=== PATIENT | female | born 1960 | race American Indian/Alaskan Native ===

== ENCOUNTER 2016-10-05 09:49 | Outpatient (CLI) | payer MEDICARE ==
[2016-10-05 10:13] LABS: Basophils % (Auto) 1.2 % (0.0-1.8); Eosinophils % (Auto) 1.7 % (0.0-4.3); Hematocrit 48.8 % (30.3-42.9); Hemoglobin 15.8 gm/dl (10.1-14.3); Mean Corpuscular HGB Conc 32 % (30-34); Mean Corpuscular Hemoglobin 29 pg (28-32); Mean Corpuscular Volume 89 fl (79-97); Platelet Count 256 K/mm3 (140-440); Red Blood Count 5.47 M/mm3 (3.65-5.03); Red Cell Distribution Width 14.5 % (13.2-15.2); White Blood Count 6.5 K/mm3 (4.5-11.0)
[2016-10-05 10:33] LABS: Alanine Aminotransferase 14 units/L (7-56); Albumin 3.7 g/dL (3.9-5); Albumin/Globulin Ratio 1.1 %; Alkaline Phosphatase 80 units/L (35-129); Anion Gap 19 mmol/L; BUN/Creatinine Ratio 14.54; Bilirubin,Total 0.3 mg/dL (0.1-1.2); Blood Urea Nitrogen 16 mg/dL (7-17); Carbon Dioxide 19 mmol/L (22-30); Chloride 107.6 mmol/L (98-107); Cholesterol 129 mg/dL (50-199); Glucose 107 mg/dL (65-100); HDL Cholesterol 33 mg/dL (40-59); LDL Cholesterol,Direct 66 mg/dL (50-130); Potassium 4.5 mmol/L (3.6-5.0); Sodium 141 mmol/L (137-145); Total Protein 7.1 g/dL (6.3-8.2); Triglycerides 150 mg/dL (2-149)
== END 2016-10-05 09:50 | disposition home or self-care (01) ==
LOC: LAB 09:49
PROVIDERS: ATTEND Psychiatry & Neurology Psychiatry
DX: F31.75 Bipolar disorder, in partial remission, most recent episode depressed (principal)
CPT/HCPCS: 36415; 80053; 80061; 83036; 84146; 84439; 84443; 85025

== ENCOUNTER 2016-12-12 13:44 | Emergency (ER) | payer MEDICARE ==
[2016-12-12 16:42] LABS: Basophils % (Auto) 1.3 % (0.0-1.8); Eosinophils % (Auto) 1.1 % (0.0-4.3); Hematocrit 51.2 % (30.3-42.9); Hemoglobin 16.6 gm/dl (10.1-14.3); Mean Corpuscular HGB Conc 33 % (30-34); Mean Corpuscular Hemoglobin 29 pg (28-32); Mean Corpuscular Volume 91 fl (79-97); Platelet Count 344 K/mm3 (140-440); Red Blood Count 5.65 M/mm3 (3.65-5.03); Red Cell Distribution Width 15.9 % (13.2-15.2); White Blood Count 8.3 K/mm3 (4.5-11.0)
[2016-12-12 16:58] LABS: Anion Gap 16 mmol/L; Blood Urea Nitrogen 14 mg/dL (7-17); Calcium 9.7 mg/dL (8.4-10.2); Carbon Dioxide 22 mmol/L (22-30); Chloride 104.2 mmol/L (98-107); Glucose 110 mg/dL (65-100); Potassium 4.6 mmol/L (3.6-5.0); Sodium 138 mmol/L (137-145)
[2016-12-12 17:01] LABS: Urine Drugs of Abuse Note Disclamer
[2016-12-12 17:21] LABS: Bilirubin,Urine NEG (Negative); Blood,Urine NEG (Negative); Ketones,Urine NEG (Negative); Leukocyte Esterase,Urine NEG (Negative); Mucus,Urine FEW /HPF; Nitrite,Urine NEG (Negative); Protein,Urine <15 mg/dL mg/dL (Negative); Urobilinogen,Urine < 2.0 mg/dL (<2.0); WBC,Urine < 1.0 /HPF (0.0-6.0)
[2016-12-12] MEDS ORDERED: TESSALON PERLES PO ONE (17:50)
[2016-12-12] MEDS ORDERED: VISTARIL PO ONE (17:50)
--- NOTE | 2016-12-12 17:55 | Emergency Department Report ---
ED Psych HPI - General Chief Complaint: Psych Stated Complaint: SUICIDAL THOUGHTS Time Seen by Provider: 12/12/16 17:43 Source: patient Mode of arrival: Ambulatory Limitations: No Limitations - History of Present Illness Initial Comments: 56-year-old female with no past medical history diabetes, hypertension, and pacemaker presents to the hospital compresses suicidal thoughts. Patient states she is not suicidal now but was suicidal when she first arrived hours ago. When asked what changed compared to arrival. Patient states she realized that is not the right way to be. She denies any suicide plan. She admits to suicidal thoughts in the past and inpatient psychiatric hospitalization but denies suicide attempts. She denies auditory or visual hallucinations. She complains of cough productive of green sputum 3 weeks but denies fever, chest pain, or shortness of breath. She does not currently have a psychiatrist and does not take psychiatric medication. Previous medical record reviewed. Patient has not been seen here before for psychiatric issues. Patient requested medication for her nerves. - Related Data Previous Rx's Medication Instructions Recorded Last Taken Type Albuterol Sulfate [Albuterol 0.63% 0.63 mg IH TID PRN #1 box 09/16/16 Unknown Rx NEBS] Desloratadine/Pseudoephedrine 1 each PO BID #30 tbmp.12hr 09/16/16 Unknown Rx [Clarinex-D 12 Hour Tablet] Fluticasone [Flonase] 1 spray NS QDAY #1 bottle 09/16/16 Unknown Rx Promethazine /Codeine 5 ml PO Q6H PRN #120 ml 09/16/16 Unknown Rx [Phenergan/Codeine 6.25-10 mg/5 ml] Allergies Allergy/AdvReac Type Severity Reaction Status Date / Time No Known Allergies Allergy Verified 09/16/16 05:16 ED Review of Systems ROS: Stated complaint: SUICIDAL THOUGHTS Other details as noted in HPI Comment: All other systems reviewed and negative Other: Constitutional: No fevers chills Eyes: No eye pain visual changes ENT: No ear pain or throat pain Neck: Denies pain Respiratory: Denieswheezing shortness of breath Cardiovascular: Denies chest pain, palpitations, syncope GI: Denies abdominal pain, nausea, vomiting, diarrhea : Denies dysuria Musculoskeletal: Denies back pain Skin: Denies rash, lesions, erythema Neurologic: Denies headache, numbness, weakness Psychiatric:as per hpi ED Past Medical Hx - Past Medical History Previous Medical History?: Yes Hx Hypertension: Yes Hx Diabetes: Yes - Surgical History Past Surgical History?: Yes Hx Pacemaker: Yes Additional Surgical History: KIDNEY SURGERY - Social History Smoking Status: Current Every Day Smoker Substance Use Type: Prescribed - Medications Home Medications: Home Medications Medication Instructions Recorded Confirmed Last Taken Type Albuterol Sulfate [Albuterol 0.63% 0.63 mg IH TID PRN #1 box 09/16/16 Unknown Rx NEBS] Desloratadine/Pseudoephedrine 1 each PO BID #30 tbmp.12hr 09/16/16 Unknown Rx [Clarinex-D 12 Hour Tablet] Fluticasone [Flonase] 1 spray NS QDAY #1 bottle 09/16/16 Unknown Rx Promethazine /Codeine 5 ml PO Q6H PRN #120 ml 09/16/16 Unknown Rx [Phenergan/Codeine 6.25-10 mg/5 ml] ED Physical Exam - General Limitations: No Limitations - Other Other exam information: General: No limitations, patient is alert in no acute distress Head exam: Atraumatic, normocephalic Eyes exam: Normal appearance, pupils equal reactive to light, extraocular movements intact ENT: Moist mucous membrane, normal oropharynx Neck exam: Normal inspection, full range of motion, no meningismus nontender Respiratory exam: Clear to auscultation bilateral, no wheezes, rales, crackles Cardiovascular: Normal rate and rhythm, normal heart sounds Abdomen: Soft, nondistended, and nontender, with normal bowel sounds, no rebound, or guarding Extremity: Full range of motion normal inspection no deformity Back: Normal Inspection, full range of motion, no tenderness Neurologic: Alert, oriented x2 not oriented to year, cranial nerves intact, no motor or sensory deficit Psychiatric: normal affect, normal mood Skin: Warm, dry, intact ED Course Vital Signs 12/12/16 12/12/16 12/12/16 15:37 16:52 18:45 Temperature 99.7 F H 98.6 F 97.8 F Pulse Rate 75 76 76 Respiratory 18 16 18 Rate Blood Pressure 121/86 Blood Pressure 109/80 125/76 [Right] O2 Sat by Pulse 96 95 100 Oximetry - Consultations Consultation #1: 12/12/16 19:07 consult and 1013 signed ED Medical Decision Making - Lab Data Result diagrams: 12/12/16 16:26 12/12/16 16:26 Lab Results 12/12/16 12/12/16 12/12/16 Range/Units 16:26 16:26 16:26 WBC 8.3 (4.5-11.0) K/mm3 RBC 5.65 H (3.65-5.03) M/mm3 Hgb 16.6 H (10.1-14.3) gm/dl Hct 51.2 H (30.3-42.9) % MCV 91 (79-97) fl MCH 29 (28-32) pg MCHC 33 (30-34) % RDW 15.9 H (13.2-15.2) % Plt Count 344 (140-440) K/mm3 Lymph % (Auto) 36.8 H (13.4-35.0) % [place] % (Auto) 4.8 (0.0-7.3) % Eos % (Auto) 1.1 (0.0-4.3) % Baso % (Auto) 1.3 (0.0-1.8) % Lymph # 3.1 (1.2-5.4) K/mm3 [place] # 0.4 (0.0-0.8) K/mm3 Eos # 0.1 (0.0-0.4) K/mm3 Baso # 0.1 (0.0-0.1) K/mm3 Seg Neutrophils % 56.0 (40.0-70.0) % Seg Neutrophils # 4.7 (1.8-7.7) K/mm3 Sodium 138 (137-145) mmol/L Potassium 4.6 (3.6-5.0) mmol/L Chloride 104.2 (98-107) mmol/L Carbon Dioxide 22 (22-30) mmol/L Anion Gap 16 mmol/L BUN 14 (7-17) mg/dL Creatinine 1.0 (0.7-1.2) mg/dL Estimated GFR > 60 ml/min BUN/Creatinine Ratio 14.00 % Glucose 110 H (65-100) mg/dL Calcium 9.7 (8.4-10.2) mg/dL Urine Color (Yellow) Urine Turbidity (Clear) Urine pH (5.0-7.0) Ur Specific [place] (1.003-1.030) Urine Protein (Negative) mg/dL Urine Glucose (UA) (Negative) mg/dL Urine Ketones (Negative) mg/dL Urine Blood (Negative) Urine Nitrite (Negative) Urine Bilirubin (Negative) Urine Urobilinogen (<2.0) mg/dL Ur Leukocyte Esterase (Negative) Urine WBC (Auto) (0.0-6.0) /HPF Urine RBC (Auto) (0.0-6.0) /HPF U Epithel Cells (Auto) (0-13.0) /HPF Urine Mucus /HPF Urine Opiates Screen Urine Methadone Screen Ur Barbiturates Screen Ur Phencyclidine Scrn Ur Amphetamines Screen U Benzodiazepines Scrn Urine Cocaine Screen U Marijuana (THC) Screen Drugs of Abuse Note Plasma/Serum Alcohol < 0.01 (0-0.07) gm% 12/12/16 12/12/16 Range/Units 16:27 16:27 WBC (4.5-11.0) K/mm3 RBC (3.65-5.03) M/mm3 Hgb (10.1-14.3) gm/dl Hct (30.3-42.9) % MCV (79-97) fl MCH (28-32) pg MCHC (30-34) % RDW (13.2-15.2) % Plt Count (140-440) K/mm3 Lymph % (Auto) (13.4-35.0) % [place] % (Auto) (0.0-7.3) % Eos % (Auto) (0.0-4.3) % Baso % (Auto) (0.0-1.8) % Lymph # (1.2-5.4) K/mm3 [place] # (0.0-0.8) K/mm3 Eos # (0.0-0.4) K/mm3 Baso # (0.0-0.1) K/mm3 Seg Neutrophils % (40.0-70.0) % Seg Neutrophils # (1.8-7.7) K/mm3 Sodium (137-145) mmol/L Potassium (3.6-5.0) mmol/L Chloride (98-107) mmol/L Carbon Dioxide (22-30) mmol/L Anion Gap mmol/L BUN (7-17) mg/dL Creatinine (0.7-1.2) mg/dL Estimated GFR ml/min BUN/Creatinine Ratio % Glucose (65-100) mg/dL Calcium (8.4-10.2) mg/dL Urine Color Yellow (Yellow) Urine Turbidity Slightly-cloudy (Clear) Urine pH 7.0 (5.0-7.0) Ur Specific [place] 1.013 (1.003-1.030) Urine Protein <15 mg/dl (Negative) mg/dL Urine Glucose (UA) Neg (Negative) mg/dL Urine Ketones Neg (Negative) mg/dL Urine Blood Neg (Negative) Urine Nitrite Neg (Negative) Urine Bilirubin Neg (Negative) Urine Urobilinogen < 2.0 (<2.0) mg/dL Ur Leukocyte Esterase Neg (Negative) Urine WBC (Auto) < 1.0 (0.0-6.0) /HPF Urine RBC (Auto) 3.0 (0.0-6.0) /HPF U Epithel Cells (Auto) 12.0 (0-13.0) /HPF Urine Mucus Few /HPF Urine Opiates Screen Presumptive negative Urine Methadone Screen Presumptive negative Ur Barbiturates Screen Presumptive negative Ur Phencyclidine Scrn Presumptive negative Ur Amphetamines Screen Presumptive negative U Benzodiazepines Scrn Presumptive negative Urine Cocaine Screen Presumptive negative U Marijuana (THC) Screen Presumptive negative Drugs of Abuse Note Disclamer Plasma/Serum Alcohol (0-0.07) gm% - Radiology Data Radiology results: report reviewed (cxr: naf) - Medical Decision Making 1030 and transfer form signed for suicidal ideation. Patient is medically cleared - Differential Diagnosis suicidal ideation, depression, anxiety Critical Care Time: No Critical care attestation.: If time is entered above; I have spent that time in minutes in the direct care of this critically ill patient, excluding procedure time. ED Disposition Clinical Impression: Suicidal ideation, Medical clearance for psychiatric admission Disposition: DC/TX PSY HOSP/PSY UNIT Is pt being admited?: No Condition: Stable Time of Disposition: 19:08 (Awaiting acceptance)
[2016-12-12 19:44] VITALS: BP 124/76
--- NOTE | 2016-12-13 08:18 | XRay Report ---
CHEST 2 VIEWS INDICATION: Cough for 3 weeks. COMPARISON: None similar at this institution. FINDINGS: PA and lateral chest radiographs demonstrate limited inspiration with mild exaggerated cardiomediastinal silhouette and crowded lung markings. No focal consolidation, pleural effusions or CHF. Right-sided pacemaker lead appears looped in upper aspect of the right atrium with an electrode projecting over the mid thoracic spine. Please correlate. Multilevel thoracic spondylosis. CONCLUSION: No definite acute chest process, as described. Cardiology pacemaker correlation may be obtained, as appropriate. Direct comparison with similar prior imaging would also be helpful, if available. Thank you for the opportunity to participate in this patient's care.
== END 2016-12-12 22:50 ==
LOC: ED 13:44 → EEVIPCON 13:44 → ED 22:50
DX: R45.851 Suicidal ideations (principal); I10 Essential (primary) hypertension; E11.9 Type 2 diabetes mellitus without complications; F17.200 Nicotine dependence, unspecified, uncomplicated; Z95.0 Presence of cardiac pacemaker
CPT/HCPCS: 36415; 71020; 80048; 80307; 81001; 85025; 99285; G0480; 80320; Q0177

== ENCOUNTER 2016-12-29 20:03 | Emergency (ER) | payer MEDICARE ==
[2016-12-29 21:50] LABS: Eosinophils % (Auto) 1.4 % (0.0-4.3); Hematocrit 48.2 % (30.3-42.9); Hemoglobin 15.5 gm/dl (10.1-14.3); Mean Corpuscular HGB Conc 32 % (30-34); Mean Corpuscular Hemoglobin 30 pg (28-32); Mean Corpuscular Volume 92 fl (79-97); Red Blood Count 5.22 M/mm3 (3.65-5.03); Red Cell Distribution Width 15.8 % (13.2-15.2); White Blood Count 6.9 K/mm3 (4.5-11.0)
[2016-12-29 21:51] LABS: Urine Drugs of Abuse Note Disclamer
[2016-12-29 21:58] LABS: Platelet Count 225 K/mm3 (140-440)
[2016-12-29 22:12] LABS: Bilirubin,Urine NEG (Negative); Blood,Urine NEG (Negative); Ketones,Urine NEG (Negative); Leukocyte Esterase,Urine NEG (Negative); Mucus,Urine FEW /HPF; Nitrite,Urine NEG (Negative); Protein,Urine <15 mg/dL mg/dL (Negative); Urobilinogen,Urine < 2.0 mg/dL (<2.0)
[2016-12-29 22:12] LABS: Alanine Aminotransferase 17 units/L (7-56); Albumin 3.6 g/dL (3.9-5); Albumin/Globulin Ratio 0.9 %; Alkaline Phosphatase 100 units/L (35-129); Anion Gap 17 mmol/L; Bilirubin,Total 0.2 mg/dL (0.1-1.2); Blood Urea Nitrogen 16 mg/dL (7-17); Calcium 9.7 mg/dL (8.4-10.2); Carbon Dioxide 22 mmol/L (22-30); Chloride 105.2 mmol/L (98-107); Glucose 109 mg/dL (65-100); Sodium 139 mmol/L (137-145); Total Protein 7.4 g/dL (6.3-8.2)
--- NOTE | 2016-12-29 22:35 | Cat Scan Report ---
FINAL REPORT PROCEDURE: CT HEAD/BRAIN WO CON TECHNIQUE: Computerized tomography of the head was performed without contrast material. HISTORY: ams COMPARISON: No prior studies are available for comparison. FINDINGS: Skull and scalp: Normal. Paranasal sinuses: Normal. Ventricles and subarachnoid spaces: Normal. Cerebrum: No evidence of hemorrhage, acute infarction or mass . Cerebellum and brainstem: No evidence of hemorrhage, acute infarction or mass. Vasculature: Normal. Comments: None. IMPRESSION: Normal Examination
[2016-12-29 22:39] VITALS: BP 129/82
--- NOTE | 2016-12-29 23:20 | Emergency Department Report ---
- General Chief complaint: Altered Mental Status Stated complaint: ALTERED MENTAL STATUS Time Seen by Provider: 12/29/16 21:47 Source: patient Mode of arrival: Ambulatory Limitations: No Limitations - History of Present Illness MD Complaint: generalized weakness, lack of energy -: Gradual Location: generalized Severity: mild Severity scale (0 -10): 2 Consistency: intermittent, now resolved Improves with: none Worsens with: none Associated Symptoms: denies: chest pain, confusion, dark stools, diaphoresis, dysuria, easy bruising, fever/chills, headaches, loss of appetite, nausea/ vomiting, myalgias, rash, shortness of breath, syncope - Related Data Previous Rx's Medication Instructions Recorded Last Taken Type Albuterol Sulfate [Albuterol 0.63% 0.63 mg IH TID PRN #1 box 09/16/16 Unknown Rx NEBS] Desloratadine/Pseudoephedrine 1 each PO BID #30 tbmp.12hr 09/16/16 Unknown Rx [Clarinex-D 12 Hour Tablet] Fluticasone [Flonase] 1 spray NS QDAY #1 bottle 09/16/16 Unknown Rx Promethazine /Codeine 5 ml PO Q6H PRN #120 ml 09/16/16 Unknown Rx [Phenergan/Codeine 6.25-10 mg/5 ml] Allergies Allergy/AdvReac Type Severity Reaction Status Date / Time No Known Allergies Allergy Verified 09/16/16 05:16 ED Review of Systems ROS: Stated complaint: ALTERED MENTAL STATUS Other details as noted in HPI Constitutional: denies: chills, fever Eyes: denies: eye pain, eye discharge, vision change ENT: denies: ear pain, throat pain Respiratory: denies: cough, shortness of breath, wheezing Cardiovascular: denies: chest pain, palpitations Endocrine: no symptoms reported Gastrointestinal: denies: abdominal pain, nausea, diarrhea Genitourinary: denies: urgency, dysuria, discharge Musculoskeletal: denies: back pain, joint swelling, arthralgia Skin: denies: rash, lesions Neurological: denies: headache, weakness, paresthesias Psychiatric: denies: anxiety, depression Hematological/Lymphatic: denies: easy bleeding, easy bruising ED Past Medical Hx - Past Medical History Previous Medical History?: Yes Hx Hypertension: Yes Hx Diabetes: Yes - Surgical History Past Surgical History?: Yes Hx Pacemaker: Yes Additional Surgical History: KIDNEY SURGERY - Social History Smoking Status: Current Every Day Smoker Substance Use Type: None - Medications Home Medications: Home Medications Medication Instructions Recorded Confirmed Last Taken Type Albuterol Sulfate [Albuterol 0.63% 0.63 mg IH TID PRN #1 box 09/16/16 Unknown Rx NEBS] Desloratadine/Pseudoephedrine 1 each PO BID #30 tbmp.12hr 09/16/16 Unknown Rx [Clarinex-D 12 Hour Tablet] Fluticasone [Flonase] 1 spray NS QDAY #1 bottle 09/16/16 Unknown Rx Promethazine /Codeine 5 ml PO Q6H PRN #120 ml 09/16/16 Unknown Rx [Phenergan/Codeine 6.25-10 mg/5 ml] ED Physical Exam - General Limitations: No Limitations General appearance: alert, in no apparent distress - Head Head exam: Present: atraumatic, normocephalic - Eye Eye exam: Present: normal appearance - ENT ENT exam: Present: mucous membranes moist - Neck Neck exam: Present: normal inspection - Respiratory Respiratory exam: Present: normal lung sounds bilaterally. Absent: respiratory distress - Cardiovascular Cardiovascular Exam: Present: regular rate, normal rhythm. Absent: systolic murmur, diastolic murmur, rubs, gallop - GI/Abdominal GI/Abdominal exam: Present: soft, normal bowel sounds - Extremities Exam Extremities exam: Present: normal inspection - Back Exam Back exam: Present: normal inspection - Neurological Exam Neurological exam: Present: alert, oriented X3 - Psychiatric Psychiatric exam: Present: normal affect, normal mood - Skin Skin exam: Present: warm, dry, intact, normal color. Absent: rash ED Course Vital Signs 12/29/16 12/29/16 12/29/16 20:09 21:22 22:39 Temperature 98.6 F Pulse Rate 86 74 Respiratory 20 16 Rate Blood Pressure 154/109 143/105 129/82 [Right] O2 Sat by Pulse 99 95 Oximetry ED Medical Decision Making - Lab Data Result diagrams: 12/29/16 21:25 12/29/16 21:25 - EKG Data -: EKG Interpreted by Me EKG shows normal: sinus rhythm Rate: normal - EKG Data When compared to previous EKG there are: no significant change Interpretation: no acute changes - Medical Decision Making Patient doing well, back to her baseline, head ct and labs negative , offered admission but she wants to go home, nishant at bedside and VS normal and stable , will dc and follow up as outpatient , she has appointment with PMD next week. Critical care attestation.: If time is entered above; I have spent that time in minutes in the direct care of this critically ill patient, excluding procedure time. ED Disposition Clinical Impression: Weakness Disposition: DISCHARGED TO HOME OR SELFCARE Is pt being admited?: No Does the pt Need Aspirin: No Condition: Good Instructions: Weakness (ED) Referrals: PRIMARY CARE, [Primary Care Provider] - 3-5 Days Time of Disposition: 23:22
== END 2016-12-29 23:42 | disposition home or self-care (01) ==
LOC: ED 20:03
DX: R53.1 Weakness (principal); E11.9 Type 2 diabetes mellitus without complications; F17.200 Nicotine dependence, unspecified, uncomplicated
CPT/HCPCS: 36415; 70450; 80053; 80307; 81001; 81025; 82140; 82962; 83735; 84443; 85025; 93005; 93010; 99284; G0480; 80320

== ENCOUNTER 2017-09-17 16:36 | Inpatient (IN) | payer MEDICARE ==
--- NOTE | 2017-09-17 17:19 | Emergency Department Report ---
HPI - General Chief Complaint: Psych Time Seen by Provider: 09/17/17 17:05 - HPI HPI: Room 8 The patient is a 57-year-old female presenting with a chief complaint of suicidal ideation/overdose. The patient states some time this morning she took an unknown amount of each of her home medications. The patient admits to taking at least metformin and Topamax (unknown amounts) but states she can't remember the other medications she has taken. EMS transported the patient her home medications which include metformin, Topamax, lisinopril, Singulair, Plavix and carvedilol. Patient denies taking Tylenol or aspirin Location: Mental state Duration: [See above] Quality: Suicidal Severity: Severe Modifying factors: [see above] Context: [see above] Mode of transportation: [not driving] ED Past Medical Hx - Past Medical History Hx Hypertension: Yes Hx Diabetes: Yes - Surgical History Hx Pacemaker: Yes Additional Surgical History: KIDNEY SURGERY - Family History Family history: no significant - Social History Smoking Status: Current Every Day Smoker (1/3 pack per day) Substance Use Type: None (denies illicit drug use) - Medications Home Medications: Home Medications Medication Instructions Recorded Confirmed Last Taken Type Albuterol Sulfate [Albuterol 0.63% 0.63 mg IH TID PRN #1 box 09/16/16 Unknown Rx NEBS] Desloratadine/Pseudoephedrine 1 each PO BID #30 tbmp.12hr 09/16/16 Unknown Rx [Clarinex-D 12 Hour Tablet] Fluticasone [Flonase] 1 spray NS QDAY #1 bottle 09/16/16 Unknown Rx Promethazine /Codeine 5 ml PO Q6H PRN #120 ml 09/16/16 Unknown Rx [Phenergan/Codeine 6.25-10 mg/5 ml] ED Review of Systems ROS: Stated complaint: OVERDOSE/SUICIDAL Other details as noted in HPI Psychiatric: suicidal thoughts Physical Exam - Physical Exam Vital Signs: Vital Signs 09/17/17 09/17/17 09/17/17 16:48 16:50 16:55 Temperature Pulse Rate 84 Respiratory 18 18 Rate Blood Pressure 158/118 [Left] O2 Sat by Pulse 92 95 95 Oximetry 09/17/17 17:07 Temperature 97.8 F Pulse Rate 80 Respiratory 18 Rate Blood Pressure 152/92 [Left] O2 Sat by Pulse 97 Oximetry Physical Exam: GENERAL: The patient is well-developed well-nourished female sitting on stretcher not appearing to be in acute distress. [] HEENT: Normocephalic. Atraumatic. Extraocular motions are intact. Patient has moist mucous membranes. NECK: Supple. Trachea midline CHEST/LUNGS: Clear to auscultation. There is no respiratory distress noted. HEART/CARDIOVASCULAR: Regular. There is no tachycardia. There is no gallop rub or murmur. ABDOMEN: Abdomen is soft, nontender. Patient has normal bowel sounds. There is no abdominal distention. SKIN: There is no rash. There is no edema. There is no diaphoresis. NEURO: The patient is awake, alert, and oriented. The patient is cooperative. The patient has normal speech MUSCULOSKELETAL: There is no evidence of acute injury. ED Course Vital Signs 09/17/17 09/17/17 09/17/17 16:48 16:50 16:55 Temperature Pulse Rate 84 Respiratory 18 18 Rate Blood Pressure 158/118 [Left] O2 Sat by Pulse 92 95 95 Oximetry 09/17/17 17:07 Temperature 97.8 F Pulse Rate 80 Respiratory 18 Rate Blood Pressure 152/92 [Left] O2 Sat by Pulse 97 Oximetry - Consultations Consultation #1: 09/17/17 17:29 Poison control called 09/17/17 18:37 Case discussed with poison control. They recommend repeating lactic acid and venous pH in 6-8 hours and to administer IV fluids/hydration if there are no contraindications ED Medical Decision Making - Lab Data Result diagrams: 09/17/17 17:37 09/17/17 17:37 Laboratory Tests 09/17/17 09/17/17 09/17/17 17:02 17:02 17:31 WBC RBC Hgb Hct MCV MCH MCHC RDW Plt Count Lymph % (Auto) [place] % (Auto) Eos % (Auto) Baso % (Auto) Lymph # [place] # Eos # Baso # Seg Neutrophils % Seg Neutrophils # VBG pH Sodium Potassium Chloride Carbon Dioxide Anion Gap BUN Creatinine Estimated GFR BUN/Creatinine Ratio Glucose POC Glucose 95 Lactic Acid Calcium Total Bilirubin AST ALT Alkaline Phosphatase Total Protein Albumin Albumin/Globulin Ratio Urine Color Yellow Urine Turbidity Clear Urine pH 7.0 Ur Specific [place] 1.006 Urine Protein <15 mg/dl Urine Glucose (UA) Neg Urine Ketones Neg Urine Blood Neg Urine Nitrite Neg Urine Bilirubin Neg Urine Urobilinogen < 2.0 Ur Leukocyte Esterase Neg Urine WBC (Auto) 2.0 Urine RBC (Auto) 2.0 U Epithel Cells (Auto) 12.0 Urine Bacteria (Auto) 1+ Salicylates Urine Opiates Screen Presumptive negative Urine Methadone Screen Presumptive negative Acetaminophen Ur Barbiturates Screen Presumptive negative Ur Phencyclidine Scrn Presumptive negative Ur Amphetamines Screen Presumptive negative U Benzodiazepines Scrn Presumptive negative Urine Cocaine Screen Presumptive negative U Marijuana (THC) Screen Presumptive negative Drugs of Abuse Note Disclamer Plasma/Serum Alcohol 09/17/17 09/17/17 09/17/17 17:37 17:37 17:37 WBC 6.7 RBC 5.58 H Hgb 17.3 H Hct 52.6 H MCV 94 MCH 31 MCHC 33 RDW 14.8 Plt Count 280 Lymph % (Auto) 44.2 H [place] % (Auto) 6.3 Eos % (Auto) 1.5 Baso % (Auto) 0.7 Lymph # 3.0 [place] # 0.4 Eos # 0.1 Baso # 0.0 Seg Neutrophils % 49.4 Seg Neutrophils # 3.2 VBG pH Sodium 138 Potassium 4.8 Chloride 105.5 Carbon Dioxide 15 L Anion Gap 22 BUN 12 Creatinine 1.0 Estimated GFR > 60 BUN/Creatinine Ratio 12 Glucose 103 H POC Glucose Lactic Acid Calcium 9.8 Total Bilirubin 0.40 AST 17 ALT 16 Alkaline Phosphatase 70 Total Protein 7.3 Albumin 3.9 Albumin/Globulin Ratio 1.1 Urine Color Urine Turbidity Urine pH Ur Specific [place] Urine Protein Urine Glucose (UA) Urine Ketones Urine Blood Urine Nitrite Urine Bilirubin Urine Urobilinogen Ur Leukocyte Esterase Urine WBC (Auto) Urine RBC (Auto) U Epithel Cells (Auto) Urine Bacteria (Auto) Salicylates Urine Opiates Screen Urine Methadone Screen Acetaminophen Ur Barbiturates Screen Ur Phencyclidine Scrn Ur Amphetamines Screen U Benzodiazepines Scrn Urine Cocaine Screen U Marijuana (THC) Screen Drugs of Abuse Note Plasma/Serum Alcohol < 0.01 09/17/17 09/17/17 09/17/17 17:37 17:37 17:41 WBC RBC Hgb Hct MCV MCH MCHC RDW Plt Count Lymph % (Auto) [place] % (Auto) Eos % (Auto) Baso % (Auto) Lymph # [place] # Eos # Baso # Seg Neutrophils % Seg Neutrophils # VBG pH Sodium Potassium Chloride Carbon Dioxide Anion Gap BUN Creatinine Estimated GFR BUN/Creatinine Ratio Glucose POC Glucose Lactic Acid 1.90 Calcium Total Bilirubin AST ALT Alkaline Phosphatase Total Protein Albumin Albumin/Globulin Ratio Urine Color Urine Turbidity Urine pH Ur Specific [place] Urine Protein Urine Glucose (UA) Urine Ketones Urine Blood Urine Nitrite Urine Bilirubin Urine Urobilinogen Ur Leukocyte Esterase Urine WBC (Auto) Urine RBC (Auto) U Epithel Cells (Auto) Urine Bacteria (Auto) Salicylates < 0.3 L Urine Opiates Screen Urine Methadone Screen Acetaminophen < 15.0 Ur Barbiturates Screen Ur Phencyclidine Scrn Ur Amphetamines Screen U Benzodiazepines Scrn Urine Cocaine Screen U Marijuana (THC) Screen Drugs of Abuse Note Plasma/Serum Alcohol 09/17/17 09/17/17 17:41 18:12 WBC RBC Hgb Hct MCV MCH MCHC RDW Plt Count Lymph % (Auto) [place] % (Auto) Eos % (Auto) Baso % (Auto) Lymph # [place] # Eos # Baso # Seg Neutrophils % Seg Neutrophils # VBG pH 7.368 Sodium Potassium Chloride Carbon Dioxide Anion Gap BUN Creatinine Estimated GFR BUN/Creatinine Ratio Glucose POC Glucose 92 Lactic Acid Calcium Total Bilirubin AST ALT Alkaline Phosphatase Total Protein Albumin Albumin/Globulin Ratio Urine Color Urine Turbidity Urine pH Ur Specific [place] Urine Protein Urine Glucose (UA) Urine Ketones Urine Blood Urine Nitrite Urine Bilirubin Urine Urobilinogen Ur Leukocyte Esterase Urine WBC (Auto) Urine RBC (Auto) U Epithel Cells (Auto) Urine Bacteria (Auto) Salicylates Urine Opiates Screen Urine Methadone Screen Acetaminophen Ur Barbiturates Screen Ur Phencyclidine Scrn Ur Amphetamines Screen U Benzodiazepines Scrn Urine Cocaine Screen U Marijuana (THC) Screen Drugs of Abuse Note Plasma/Serum Alcohol - EKG Data -: EKG Interpreted by Me EKG shows normal: sinus rhythm Rate: normal - EKG Data When compared to previous EKG there are: previous EKG unavailable 09/17/17 17:45 QRS 98 - Differential Diagnosis suicidal ideation, medication overdose Critical care attestation.: If time is entered above; I have spent that time in minutes in the direct care of this critically ill patient, excluding procedure time. ED Disposition Clinical Impression: Suicidal ideation, Intentional drug overdose, Blood CO2 decreased Disposition: DC-09 OP ADMIT IP TO THIS HOSP Is pt being admited?: Yes Does the pt Need Aspirin: No Condition: Serious Time of Disposition: 19:09 (hospitalist paged (Dr Gomes))
[2017-09-17 17:25] LABS: Bacteria,Urine 1+ /HPF (Negative); Bilirubin,Urine NEG (Negative); Blood,Urine NEG (Negative); Color,Urine Yellow (Yellow); Nitrite,Urine NEG (Negative); Protein,Urine <15 mg/dL mg/dL (Negative); Urobilinogen,Urine < 2.0 mg/dL (<2.0)
[2017-09-17 17:36] LABS: Amphetamine Screen,Urine PRESUMPTIVE NEGATIVE; Benzodiazepines Screen,Urine PRESUMPTIVE NEGATIVE; Cannabinoid Screen,Urine PRESUMPTIVE NEGATIVE; Cocaine Screen,Urine PRESUMPTIVE NEGATIVE; Methadone Screen,Urine PRESUMPTIVE NEGATIVE; Opiate Screen,Urine PRESUMPTIVE NEGATIVE
[2017-09-17 17:50] LABS: Eosinophils % (Auto) 1.5 % (0.0-4.3); Monocytes % (Auto) 6.3 % (0.0-7.3)
[2017-09-17 17:56] LABS: Eosinophils # (Auto) 0.1 K/mm3 (0.0-0.4); Monocytes # (Auto) 0.4 K/mm3 (0.0-0.8)
[2017-09-17 17:59] LABS: Hematocrit 52.6 % (30.3-42.9); Hemoglobin 17.3 gm/dl (10.1-14.3); Mean Corpuscular HGB Conc 33 % (30-34); Mean Corpuscular Hemoglobin 31 pg (28-32); Mean Corpuscular Volume 94 fl (79-97); Mean Platelet Volume 9.4 fl (6-12); Platelet Count 280 K/mm3 (140-440); Red Blood Count 5.58 M/mm3 (3.65-5.03); Red Cell Distribution Width 14.8 % (13.2-15.2)
[2017-09-17 18:00] LABS: Basophils % (Auto) 0.7 % (0.0-1.8); Lymphocytes % (Auto) 44.2 % (13.4-35.0)
[2017-09-17 18:10] LABS: Alanine Aminotransferase 16 units/L (7-56); Albumin 3.9 g/dL (3.9-5); BUN/Creatinine Ratio 12; Blood Urea Nitrogen 12 mg/dL (7-17); Calcium 9.8 mg/dL (8.4-10.2); Hemolysis Index 41
[2017-09-17] MEDS ORDERED: NON-FORMULARY (Albuterol Sulfate [Albuterol 0.63% Nebs] 0.63 MG) IH PRN (19:51)
--- NOTE | 2017-09-17 19:51 | History and Physical Report ---
History of Present Illness Date of examination: 09/17/17 Date of admission: 09/17/17 Chief complaint: CC Intentional overdose on multiple meds including Metformin and Topamax. History of present illness: MIMI The patient is a 57-year-old female presenting with a chief complaint of suicidal ideation/overdose. The patient states some time this morning she took an unknown amount of each of her home medications. The patient admits to taking some metformin and Topamax (unknown amounts) but states she can't remember the other medications she has taken. EMS transported the patient her home medications which include metformin, Topamax, lisinopril, Singulair, Plavix and carvedilol. Patient denies taking Tylenol or aspirin. Past Medical History Hx Hypertension: Yes Hx Diabetes: Yes Surgical History Hx Pacemaker: Yes Additional Surgical History: KIDNEY SURGERY - Family History Family history: no significant - Social History Smoking Status: Current Every Day Smoker (1/3 pack per day) Substance Use Type: None (denies illicit drug use) - Medications Home Medications: Home Medications Medication Instructions Recorded Confirmed Last Taken Type Albuterol Sulfate [Albuterol 0.63% 0.63 mg IH TID PRN #1 box 09/16/16 Unknown Rx NEBS] Desloratadine/Pseudoephedrine 1 each PO BID #30 tbmp.12hr 09/16/16 Unknown Rx [Clarinex-D 12 Hour Tablet] Fluticasone [Flonase] 1 spray NS QDAY #1 bottle 09/16/16 Unknown Rx Promethazine /Codeine 5 ml PO Q6H PRN #120 ml 09/16/16 Unknown Rx [Phenergan/Codeine 6.25-10 mg/5 ml] Review of Systems ROS: Stated complaint: OVERDOSE/SUICIDAL Other details as noted in HPI Psychiatric: suicidal thoughts Medications and Allergies Allergies Allergy/AdvReac Type Severity Reaction Status Date / Time No Known Allergies Allergy Verified 09/16/16 05:16 Home Medications Medication Instructions Recorded Confirmed Last Taken Type Albuterol Sulfate [Albuterol 0.63% 0.63 mg IH TID PRN #1 box 09/16/16 Unknown Rx NEBS] Desloratadine/Pseudoephedrine 1 each PO BID #30 tbmp.12hr 09/16/16 Unknown Rx [Clarinex-D 12 Hour Tablet] Fluticasone [Flonase] 1 spray NS QDAY #1 bottle 09/16/16 Unknown Rx Promethazine /Codeine 5 ml PO Q6H PRN #120 ml 09/16/16 Unknown Rx [Phenergan/Codeine 6.25-10 mg/5 ml] Exam - Constitutional Vitals: Temp Pulse Resp BP Pulse Ox 97.8 F 80 18 152/92 97 09/17/17 17:07 09/17/17 17:07 09/17/17 17:07 09/17/17 17:07 09/17/17 17:07 General appearance: Present: no acute distress, well-nourished - EENT Eyes: Present: PERRL ENT: hearing intact, clear oral mucosa - Neck Neck: Present: supple, normal ROM - Respiratory Respiratory effort: normal Respiratory: bilateral: CTA - Cardiovascular Heart rate: 70 Rhythm: regular Heart Sounds: Present: S1 & S2. Absent: rub, click - Extremities Extremities: no ischemia, pulses intact, pulses symmetrical, No edema Peripheral Pulses: within normal limits - Abdominal General gastrointestinal: Present: soft, non-tender, non-distended, normal bowel sounds Female genitourinary: Present: normal - Rectal Rectal Exam: deferred - Integumentary Integumentary: Present: clear, warm, dry - Musculoskeletal Musculoskeletal: gait normal, strength equal bilaterally - Psychiatric Psychiatric: appropriate mood/affect, intact judgment & insight, depressed - Neurologic Neurologic: CNII-XII intact, moves all extremities - Allied Health Allied health notes reviewed: nursing, case management Results - Labs CBC & Chem 7: 09/17/17 17:37 09/17/17 17:37 Labs: Laboratory Last Values WBC 6.7 K/mm3 (4.5-11.0) 09/17/17 17:37 RBC 5.58 M/mm3 (3.65-5.03) H 09/17/17 17:37 Hgb 17.3 gm/dl (10.1-14.3) H 09/17/17 17:37 Hct 52.6 % (30.3-42.9) H 09/17/17 17:37 MCV 94 fl (79-97) 09/17/17 17:37 MCH 31 pg (28-32) 09/17/17 17:37 MCHC 33 % (30-34) 09/17/17 17:37 RDW 14.8 % (13.2-15.2) 09/17/17 17:37 Plt Count 280 K/mm3 (140-440) 09/17/17 17:37 Lymph % (Auto) 44.2 % (13.4-35.0) H 09/17/17 17:37 [place] % (Auto) 6.3 % (0.0-7.3) 09/17/17 17:37 Eos % (Auto) 1.5 % (0.0-4.3) 09/17/17 17:37 Baso % (Auto) 0.7 % (0.0-1.8) 09/17/17 17:37 Lymph # 3.0 K/mm3 (1.2-5.4) 09/17/17 17:37 [place] # 0.4 K/mm3 (0.0-0.8) 09/17/17 17:37 Eos # 0.1 K/mm3 (0.0-0.4) 09/17/17 17:37 Baso # 0.0 K/mm3 (0.0-0.1) 09/17/17 17:37 Seg Neutrophils % 49.4 % (40.0-70.0) 09/17/17 17:37 Seg Neutrophils # 3.2 K/mm3 (1.8-7.7) 09/17/17 17:37 VBG pH 7.368 (7.320-7.420) 09/17/17 17:41 Sodium 138 mmol/L (137-145) 09/17/17 17:37 Potassium 4.8 mmol/L (3.6-5.0) 09/17/17 17:37 Chloride 105.5 mmol/L (98-107) 09/17/17 17:37 Carbon Dioxide 15 mmol/L (22-30) L 09/17/17 17:37 Anion Gap 22 mmol/L 09/17/17 17:37 BUN 12 mg/dL (7-17) 09/17/17 17:37 Creatinine 1.0 mg/dL (0.7-1.2) 09/17/17 17:37 Estimated GFR > 60 ml/min 09/17/17 17:37 BUN/Creatinine Ratio 12 % 09/17/17 17:37 Glucose 103 mg/dL (65-100) H 09/17/17 17:37 POC Glucose 92 (70-105) 09/17/17 18:12 Lactic Acid 1.90 mmol/L (0.7-2.0) 09/17/17 17:41 Calcium 9.8 mg/dL (8.4-10.2) 09/17/17 17:37 Total Bilirubin 0.40 mg/dL (0.1-1.2) 09/17/17 17:37 AST 17 units/L (5-40) 09/17/17 17:37 ALT 16 units/L (7-56) 09/17/17 17:37 Alkaline Phosphatase 70 units/L (35-129) 09/17/17 17:37 Total Protein 7.3 g/dL (6.3-8.2) 09/17/17 17:37 Albumin 3.9 g/dL (3.9-5) 09/17/17 17:37 Albumin/Globulin Ratio 1.1 % 09/17/17 17:37 Urine Color Yellow (Yellow) 09/17/17 17:02 Urine Turbidity Clear (Clear) 09/17/17 17:02 Urine pH 7.0 (5.0-7.0) 09/17/17 17:02 Ur Specific [place] 1.006 (1.003-1.030) 09/17/17 17:02 Urine Protein <15 mg/dl mg/dL (Negative) 09/17/17 17:02 Urine Glucose (UA) Neg mg/dL (Negative) 09/17/17 17:02 Urine Ketones Neg mg/dL (Negative) 09/17/17 17:02 Urine Blood Neg (Negative) 09/17/17 17:02 Urine Nitrite Neg (Negative) 09/17/17 17:02 Urine Bilirubin Neg (Negative) 09/17/17 17:02 Urine Urobilinogen < 2.0 mg/dL (<2.0) 09/17/17 17:02 Ur Leukocyte Esterase Neg (Negative) 09/17/17 17:02 Urine WBC (Auto) 2.0 /HPF (0.0-6.0) 09/17/17 17:02 Urine RBC (Auto) 2.0 /HPF (0.0-6.0) 09/17/17 17:02 U Epithel Cells (Auto) 12.0 /HPF (0-13.0) 09/17/17 17:02 Urine Bacteria (Auto) 1+ /HPF (Negative) 09/17/17 17:02 Salicylates < 0.3 mg/dL (2.8-20.0) L 09/17/17 17:37 Urine Opiates Screen Presumptive negative 09/17/17 17:02 Urine Methadone Screen Presumptive negative 09/17/17 17:02 Acetaminophen < 15.0 ug/mL (10.0-30.0) 09/17/17 17:37 Ur Barbiturates Screen Presumptive negative 09/17/17 17:02 Ur Phencyclidine Scrn Presumptive negative 09/17/17 17:02 Ur Amphetamines Screen Presumptive negative 09/17/17 17:02 U Benzodiazepines Scrn Presumptive negative 09/17/17 17:02 Urine Cocaine Screen Presumptive negative 09/17/17 17:02 U Marijuana (THC) Screen Presumptive negative 09/17/17 17:02 Drugs of Abuse Note Disclamer 09/17/17 17:02 Plasma/Serum Alcohol < 0.01 gm% (0-0.07) 09/17/17 17:37 - Imaging and Cardiology EKG: report reviewed Assessment and Plan Advance Directives: Yes (Full code) VTE prophylaxis?: Chemical Plan of care discussed with patient/family: Yes - Patient Problems (1) Intentional drug overdose Current Visit: Yes Status: Acute Qualifiers: Encounter type: initial encounter Qualified Code(s): T50.902A - Poisoning by unspecified drugs, medicaments and biological substances, intentional self- harm, initial encounter Plan to address problem: Unknown amount of meds taken including Metformin and Topamax.Prevent hypoglycemia.IV D5W for now.Monitor closely for Hypotension. (2) Suicidal ideation Current Visit: Yes Status: Acute Plan to address problem: Mental Health consult (3) T2DM (type 2 diabetes mellitus) Current Visit: Yes Status: Chronic Qualifiers: Diabetes mellitus complication status: without complication Diabetes mellitus penitentiary insulin use: without terminal operations manager use Qualified Code(s): E11.9 - Type 2 diabetes mellitus without complications Plan to address problem: Presumed Diabetes Check A1c Low dose coverage for now. (4) DVT prophylaxis Current Visit: Yes Status: Acute Plan to address problem: On Lovenox
[2017-09-17] MEDS ORDERED: MILK OF MAGNESIA PO PRN (19:56)
[2017-09-17] MEDS ORDERED: MORPHINE IV PRN ×2 (19:56)
[2017-09-17] MEDS ORDERED: ZOFRAN IV PRN (19:56)
[2017-09-17] MEDS ORDERED: TYLENOL PO PRN (19:56)
[2017-09-17] MEDS ORDERED: DULCOLAX PR PRN (19:56)
[2017-09-17] MEDS ORDERED: PROVENTIL IH PRN (20:11)
[2017-09-17] MEDS ORDERED: NOVOLOG SUB-Q ONE (20:36)
[2017-09-17] MEDS: D5NS 1,000 ML IV SCH (22:35)
[2017-09-18 07:59] LABS: Basophils # (Auto) 0.1 K/mm3 (0.0-0.1); Basophils % (Auto) 0.8 % (0.0-1.8); Eosinophils # (Auto) 0.1 K/mm3 (0.0-0.4); Eosinophils % (Auto) 1.2 % (0.0-4.3); Hematocrit 48.7 % (30.3-42.9); Lymphocytes # (Auto) 3.4 K/mm3 (1.2-5.4); Lymphocytes % (Auto) 46.1 % (13.4-35.0); Mean Corpuscular HGB Conc 33 % (30-34); Mean Corpuscular Hemoglobin 31 pg (28-32); Mean Corpuscular Volume 95 fl (79-97); Monocytes # (Auto) 0.5 K/mm3 (0.0-0.8); Monocytes % (Auto) 6.9 % (0.0-7.3); Platelet Count 223 K/mm3 (140-440); Red Blood Count 5.12 M/mm3 (3.65-5.03); Red Cell Distribution Width 14.3 % (13.2-15.2)
[2017-09-18 08:05] LABS: Albumin 3.5 g/dL (3.9-5); Calcium 8.8 mg/dL (8.4-10.2)
--- NOTE | 2017-09-18 10:02 | Consultation ---
History of Present Illness - Reason for Consult Consult date: 09/18/17 Reason for consult: Mental Health Evaluation Requesting physician: JILL CASILLAS - Chief Complaint Chief complaint: "I took the pills" - History of Present Psychiatric Illness The patient is a 57-year-old female presenting with a chief complaint of suicidal ideation/overdose. Today patient is calm, but withdrawn during the assessment. She stated taking multiple metformin and topamax to kill herself. She stated that no one loves her. Also, she stated that her current medical issues is a major cause of her to feel the way she does. She denies any previous suicidal attempts in the past. She was evasive when she was asked about any life stressors that's going on in her life. The patient continue to state, "I had no reason to live yesterday." She would not conform or deny SI's, but denies HI's and AVH's. She denies sleep disturbance, but admitted to a poor appetite. She denies recreational drug use and a alcohol consumption. Medications and Allergies Allergies Allergy/AdvReac Type Severity Reaction Status Date / Time No Known Allergies Allergy Verified 09/16/16 05:16 Home Medications Medication Instructions Recorded Confirmed Last Taken Type Albuterol Sulfate [Albuterol 0.63% 0.63 mg IH TID PRN #1 box 09/16/16 Unknown Rx NEBS] Desloratadine/Pseudoephedrine 1 each PO BID #30 tbmp.12hr 09/16/16 Unknown Rx [Clarinex-D 12 Hour Tablet] Fluticasone [Flonase] 1 spray NS QDAY #1 bottle 09/16/16 Unknown Rx Promethazine /Codeine 5 ml PO Q6H PRN #120 ml 09/16/16 Unknown Rx [Phenergan/Codeine 6.25-10 mg/5 ml] Active Meds: Active Medications Acetaminophen (Tylenol) 650 mg PO Q4H PRN PRN Reason: Pain MILD(1-3)/Fever >100.5/TRUONG Albuterol (Proventil) 2.5 mg IH Q4HRT PRN PRN Reason: Shortness Of Breath Bisacodyl (Dulcolax) 10 mg CO QDAY PRN PRN Reason: Constipation unrelieved by MOM Fluticasone Propionate (Flonase) 50 mcg NS QDAY MOE Dextrose/Sodium Chloride (D5ns) 1,000 mls @ 125 mls/hr IV DIRECT MOE Last Admin: 09/17/17 22:35 Dose: 125 mls/hr Magnesium Hydroxide (Milk Of Magnesia) 30 ml PO Q4H PRN PRN Reason: Constipation Morphine Sulfate (Morphine) 2 mg IV Q4H PRN PRN Reason: Pain, Moderate (4-6) Morphine Sulfate (Morphine) 4 mg IV Q4H PRN PRN Reason: Pain , Severe (7-10) Ondansetron HCl (Zofran) 4 mg IV Q8H PRN PRN Reason: N/V unrelieved by Reglan Past psychiatric history - Past Medical History Past Medical History: diabetes, hypertension Past Surgical History: Other (Peace Maker, Kidney Surgery) - past Psychiatric treatment and history psychiatric treatment history: Denies a psy hx and a fam psy hx. - Social History Social history: lives with family Mental Status Exam - Vital signs Last Vital Signs Temp 98.1 F 09/18/17 08:06 Pulse 76 09/18/17 08:06 Resp 20 09/18/17 08:06 BP 120/86 09/18/17 08:06 Pulse Ox 95 09/18/17 08:06 - Exam Narrative exam: MSE: Appearance: calm Behavior: good eye contact Speech: regular rate and tone Mood: "okay" withdrawn Affect: congruent to mood Thought Process: circumstantial Thought Content: denies HI's and AVH's Motor Activity: lying in bed Cognition: A/O x3 Insight: variable Judgment: variable Results Result Diagrams: 09/18/17 07:28 09/19/17 06:46 Abnormal lab results 09/17/17 09/17/17 09/17/17 Range/Units 17:37 17:37 17:37 RBC 5.58 H (3.65-5.03) M/mm3 Hgb 17.3 H (10.1-14.3) gm/dl Hct 52.6 H (30.3-42.9) % Lymph % (Auto) 44.2 H (13.4-35.0) % Chloride (98-107) mmol/L Carbon Dioxide 15 L (22-30) mmol/L Creatinine (0.7-1.2) mg/dL Glucose 103 H (65-100) mg/dL Albumin (3.9-5) g/dL Salicylates < 0.3 L (2.8-20.0) mg/dL 09/18/17 09/18/17 Range/Units 07:28 07:28 RBC 5.12 H (3.65-5.03) M/mm3 Hgb 16.0 H (10.1-14.3) gm/dl Hct 48.7 H (30.3-42.9) % Lymph % (Auto) 46.1 H (13.4-35.0) % Chloride 108.3 H (98-107) mmol/L Carbon Dioxide 19 L (22-30) mmol/L Creatinine 1.4 H (0.7-1.2) mg/dL Glucose 126 H (65-100) mg/dL Albumin 3.5 L (3.9-5) g/dL Salicylates (2.8-20.0) mg/dL All other labs normal. Assessment and Plan Assessment and plan: Impression: MDD severe type. Today patient is calm, but withdrawn during the assessment. Patient has passive SI's. DDx: R/O Bipolar DO Recommendation/Plan: Continue 1013 with placement to inpatient psy services once medically stable. Start Remeron 15 mg PO HS for depression. Remeron may stimulate the patient's appetite. Discussed possible suicidality/medication induced bryanna with patient reference Remeron.
[2017-09-18] MEDS: FLONASE NS SCH (12:33)
[2017-09-18] MEDS: D5NS 1,000 ML IV SCH (16:15)
--- NOTE | 2017-09-18 17:01 | Progress Note ---
Assessment and Plan Assessment and plan: The patient is a 57-year-old female presenting after intentional drug overdose. Suicide attempt/intentional drug overdose Case discussed with psychiatry, patient remains depressed and withdrawn, she has been started on Remeron, planned for transfer to inpatient psych facility Acute kidney injury/vasomotor nephropathy Continue IV fluids if not improved by tomorrow, will get renal ultrasound and consult nephrology T2DM (type 2 diabetes mellitus) Glucose was actually low, continue dextrose containing IV fluid, check A1c DVT prophylaxis On Lovenox History Interval history: Review of systems Constitutional: No fevers, no malaise, no joint pains CVS: No chest pain, no orthopnea, no dyspnea on exertion, no pedal edema GI: No abdominal pain, no diarrhea, no vomiting, no constipation Respiratory: No shortness of breath, no wheezing, no coughing Hospitalist Physical - Physical exam Narrative exam: General.: Appears well, no distress, nontoxic HEENT: Moist mucous membranes, extraocular muscles intact, no lymphadenopathy Neck: supple Cardiac: S1-S2 heard Lungs: clear to auscultation bilaterally Abdomen: soft , nontender, nondistended, bowel sounds positive Extremities: no edema clubbing or cyanosis Skin: no rash or lesions Neurologic: no gross focal deficits Psych: Withdrawn, appears depressed - Constitutional Vitals: Temp Pulse Resp BP Pulse Ox 98.0 F 74 20 120/84 96 09/18/17 11:59 09/18/17 11:59 09/18/17 11:59 09/18/17 11:59 09/18/17 11:59 General appearance: Present: no acute distress, well-nourished Results - Labs CBC & Chem 7: 09/18/17 07:28 09/18/17 07:28 Labs: Laboratory Last Values WBC 7.3 K/mm3 (4.5-11.0) 09/18/17 07:28 RBC 5.12 M/mm3 (3.65-5.03) H 09/18/17 07:28 Hgb 16.0 gm/dl (10.1-14.3) H 09/18/17 07:28 Hct 48.7 % (30.3-42.9) H 09/18/17 07:28 MCV 95 fl (79-97) 09/18/17 07:28 MCH 31 pg (28-32) 09/18/17 07:28 MCHC 33 % (30-34) 09/18/17 07:28 RDW 14.3 % (13.2-15.2) 09/18/17 07:28 Plt Count 223 K/mm3 (140-440) 09/18/17 07:28 Lymph % (Auto) 46.1 % (13.4-35.0) H 09/18/17 07:28 [place] % (Auto) 6.9 % (0.0-7.3) 09/18/17 07:28 Eos % (Auto) 1.2 % (0.0-4.3) 09/18/17 07:28 Baso % (Auto) 0.8 % (0.0-1.8) 09/18/17 07: Lymph # 3.4 K/mm3 (1.2-5.4) 09/18/17 07:28 [place] # 0.5 K/mm3 (0.0-0.8) 09/18/17 07: Eos # 0.1 K/mm3 (0.0-0.4) 09/18/17 07:28 Baso # 0.1 K/mm3 (0.0-0.1) 09/18/17 07:28 Seg Neutrophils % 45.0 % (40.0-70.0) 09/18/17 07: Seg Neutrophils # 3.3 K/mm3 (1.8-7.7) 09/18/17 07:28 VBG pH 7.368 (7.320-7.420) 09/17/17 17:41 Sodium 143 mmol/L (137-145) 09/18/17 07:28 Potassium 4.2 mmol/L (3.6-5.0) 09/18/17 07:28 Chloride 108.3 mmol/L (98-107) H 09/18/17 07:28 Carbon Dioxide 19 mmol/L (22-30) L 09/18/17 07:28 Anion Gap 20 mmol/L 09/18/17 07:28 BUN 14 mg/dL (7-17) 09/18/17 07:28 Creatinine 1.4 mg/dL (0.7-1.2) H 09/18/17 07:28 Estimated GFR 47 ml/min 09/18/17 07:28 BUN/Creatinine Ratio 10 % 09/18/17 07:28 Glucose 126 mg/dL (65-100) H 09/18/17 07:28 POC Glucose 122 (70-105) H 09/18/17 12:04 Lactic Acid 1.90 mmol/L (0.7-2.0) 09/17/17 17:41 Calcium 8.8 mg/dL (8.4-10.2) 09/18/17 07:28 Total Bilirubin 0.30 mg/dL (0.1-1.2) 09/18/17 07:28 AST 13 units/L (5-40) 09/18/17 07:28 ALT 13 units/L (7-56) 09/18/17 07:28 Alkaline Phosphatase 58 units/L (35-129) 09/18/17 07:28 Total Protein 6.9 g/dL (6.3-8.2) 09/18/17 07:28 Albumin 3.5 g/dL (3.9-5) L 09/18/17 07:28 Albumin/Globulin Ratio 1.0 % 09/18/17 07:28 Urine Color Yellow (Yellow) 09/17/17 17:02 Urine Turbidity Clear (Clear) 09/17/17 17:02 Urine pH 7.0 (5.0-7.0) 09/17/17 17:02 Ur Specific [place] 1.006 (1.003-1.030) 09/17/17 17:02 Urine Protein <15 mg/dl mg/dL (Negative) 09/17/17 17:02 Urine Glucose (UA) Neg mg/dL (Negative) 09/17/17 17:02 Urine Ketones Neg mg/dL (Negative) 09/17/17 17:02 Urine Blood Neg (Negative) 09/17/17 17:02 Urine Nitrite Neg (Negative) 09/17/17 17:02 Urine Bilirubin Neg (Negative) 09/17/17 17:02 Urine Urobilinogen < 2.0 mg/dL (<2.0) 09/17/17 17:02 Ur Leukocyte Esterase Neg (Negative) 09/17/17 17:02 Urine WBC (Auto) 2.0 /HPF (0.0-6.0) 09/17/17 17:02 Urine RBC (Auto) 2.0 /HPF (0.0-6.0) 09/17/17 17:02 U Epithel Cells (Auto) 12.0 /HPF (0-13.0) 09/17/17 17:02 Urine Bacteria (Auto) 1+ /HPF (Negative) 09/17/17 17:02 Salicylates < 0.3 mg/dL (2.8-20.0) L 09/17/17 17:37 Urine Opiates Screen Presumptive negative 09/17/17 17:02 Urine Methadone Screen Presumptive negative 09/17/17 17:02 Acetaminophen < 15.0 ug/mL (10.0-30.0) 09/17/17 17:37 Ur Barbiturates Screen Presumptive negative 09/17/17 17:02 Ur Phencyclidine Scrn Presumptive negative 09/17/17 17:02 Ur Amphetamines Screen Presumptive negative 09/17/17 17:02 U Benzodiazepines Scrn Presumptive negative 09/17/17 17:02 Urine Cocaine Screen Presumptive negative 09/17/17 17:02 U Marijuana (THC) Screen Presumptive negative 09/17/17 17:02 Drugs of Abuse Note Disclamer 09/17/17 17:02 Plasma/Serum Alcohol < 0.01 gm% (0-0.07) 09/17/17 17:37
[2017-09-18] MEDS: HABITROL TD SCH (18:41)
[2017-09-18] MEDS: REMERON PO SCH (21:52)
[2017-09-19 07:43] LABS: Calcium 8.5 mg/dL (8.4-10.2)
--- NOTE | 2017-09-19 09:19 | Progress Note ---
Subjective - Reason for Consult Consult date: 09/19/17 Reason for consult: Psychiatry Follow-up - Chief Complaint Chief complaint: "Hello" The patient is a 57-year-old female presenting with a chief complaint of suicidal ideation/overdose. Today patient is calm, but withdrawn during the assessment. She did not want to talk in detail about why she took multiple pills to kill herself. She did state that she slept "well" last night. She would not confirm or deny SI's, but denies HI's and AVH's. She denies any side effects of her medication. Mental Status Exam - Vital signs Last Vital Signs Temp 98.2 F 09/19/17 07:52 Pulse 76 09/19/17 07:52 Resp 20 09/19/17 07:52 BP 110/78 09/19/17 07:52 Pulse Ox 99 09/19/17 07:52 - Exam Narrative exam: MSE: Appearance: calm, cooperative Behavior: good eye contact Speech: regular rate and tone Mood: "okay" withdrawn Affect: congruent to mood Thought Process: circumstantial Thought Content: denies HI's and AVH's Motor Activity: lying in bed Cognition: A/O x3 Insight: variable Judgment: variable Assessment and Plan Impression: MDD severe type. Today patient is calm, but withdrawn during the assessment. Patient has passive SI's. DDx: R/O Bipolar DO Recommendation/Plan: Continue 1013 with placement to inpatient psy services once medically stable. Continue Remeron 15 mg PO HS for depression. Remeron may stimulate the patient's appetite. Discussed possible suicidality/medication induced bryanna with patient reference Remeron.
[2017-09-19] MEDS: FLONASE NS SCH (10:00)
[2017-09-19] MEDS: HABITROL TD SCH (11:17)
--- NOTE | 2017-09-19 11:45 | Progress Note ---
Assessment and Plan Assessment and plan: The patient is a 57-year-old female presenting after intentional drug overdose. Suicide attempt/intentional drug overdose Case discussed with psychiatry, patient remains depressed and withdrawn, she has been started on Remeron, planned for transfer to inpatient psych facility At this time the patient is medically optimized for transfer to inpatient psychiatric facility Acute kidney injury/vasomotor nephropathy now resolved with IVF T2DM (type 2 diabetes mellitus) Glucose was actually low, continue dextrose containing IV fluid, A1c 6.1 Nicotine abuse Patient has been counseled for greater than 10 is about cessation, continue nicotine patches DVT prophylaxis On Lovenox History Interval history: Review of systems Constitutional: No fevers, no malaise, no joint pains CVS: No chest pain, no orthopnea, no dyspnea on exertion, no pedal edema GI: No abdominal pain, no diarrhea, no vomiting, no constipation Respiratory: No shortness of breath, no wheezing, no coughing Hospitalist Physical - Physical exam Narrative exam: General.: Appears well, no distress, nontoxic HEENT: Moist mucous membranes, extraocular muscles intact, no lymphadenopathy Neck: supple Cardiac: S1-S2 heard Lungs: clear to auscultation bilaterally Abdomen: soft , nontender, nondistended, bowel sounds positive Extremities: no edema clubbing or cyanosis Skin: no rash or lesions Neurologic: no gross focal deficits Psych: Withdrawn, appears depressed - Constitutional Vitals: Temp Pulse Resp BP Pulse Ox 98.2 F 76 20 110/78 99 09/19/17 07:52 09/19/17 07:52 09/19/17 07:52 09/19/17 07:52 09/19/17 07:52 General appearance: Present: no acute distress, well-nourished Results - Labs CBC & Chem 7: 09/18/17 07:28 09/19/17 06:46 Labs: Laboratory Last Values WBC 7.3 K/mm3 (4.5-11.0) 09/18/17 07:28 RBC 5.12 M/mm3 (3.65-5.03) H 09/18/17 07:28 Hgb 16.0 gm/dl (10.1-14.3) H 09/18/17 07:28 Hct 48.7 % (30.3-42.9) H 09/18/17 07:28 MCV 95 fl (79-97) 09/18/17 07:28 MCH 31 pg (28-32) 09/18/17 07:28 MCHC 33 % (30-34) 09/18/17 07:28 RDW 14.3 % (13.2-15.2) 09/18/17 07:28 Plt Count 223 K/mm3 (140-440) 09/18/17 07:28 Lymph % (Auto) 46.1 % (13.4-35.0) H 09/18/17 07:28 [place] % (Auto) 6.9 % (0.0-7.3) 09/18/17 07:28 Eos % (Auto) 1.2 % (0.0-4.3) 09/18/17 07:28 Baso % (Auto) 0.8 % (0.0-1.8) 09/18/17 07:28 Lymph # 3.4 K/mm3 (1.2-5.4) 09/18/17 07:28 [place] # 0.5 K/mm3 (0.0-0.8) 09/18/17 07:28 Eos # 0.1 K/mm3 (0.0-0.4) 09/18/17 07:28 Baso # 0.1 K/mm3 (0.0-0.1) 09/18/17 07:28 Seg Neutrophils % 45.0 % (40.0-70.0) 09/18/17 07:28 Seg Neutrophils # 3.3 K/mm3 (1.8-7.7) 09/18/17 07:28 VBG pH 7.368 (7.320-7.420) 09/17/17 17:41 Sodium 144 mmol/L (137-145) 09/19/17 06:46 Potassium 3.8 mmol/L (3.6-5.0) 09/19/17 06:46 Chloride 109.5 mmol/L (98-107) H 09/19/17 06:46 Carbon Dioxide 20 mmol/L (22-30) L 09/19/17 06:46 Anion Gap 18 mmol/L 09/19/17 06:46 BUN 13 mg/dL (7-17) 09/19/17 06:46 Creatinine 1.2 mg/dL (0.7-1.2) 09/19/17 06:46 Estimated GFR 56 ml/min 09/19/17 06:46 BUN/Creatinine Ratio 11 % 09/19/17 06:46 Glucose 96 mg/dL (65-100) 09/19/17 06:46 POC Glucose 96 (70-105) 09/18/17 22:42 Hemoglobin A1c 6.1 % (4-6) H 09/19/17 06:46 Lactic Acid 1.90 mmol/L (0.7-2.0) 09/17/17 17:41 Calcium 8.5 mg/dL (8.4-10.2) 09/19/17 06:46 Total Bilirubin 0.30 mg/dL (0.1-1.2) 09/18/17 07:28 AST 13 units/L (5-40) 09/18/17 07:28 ALT 13 units/L (7-56) 09/18/17 07:28 Alkaline Phosphatase 58 units/L (35-129) 09/18/17 07:28 Total Protein 6.9 g/dL (6.3-8.2) 09/18/17 07:28 Albumin 3.5 g/dL (3.9-5) L 09/18/17 07:28 Albumin/Globulin Ratio 1.0 % 09/18/17 07:28 Urine Color Yellow (Yellow) 09/17/17 17:02 Urine Turbidity Clear (Clear) 09/17/17 17:02 Urine pH 7.0 (5.0-7.0) 09/17/17 17:02 Ur Specific [place] 1.006 (1.003-1.030) 09/17/17 17:02 Urine Protein <15 mg/dl mg/dL (Negative) 09/17/17 17:02 Urine Glucose (UA) Neg mg/dL (Negative) 09/17/17 17:02 Urine Ketones Neg mg/dL (Negative) 09/17/17 17:02 Urine Blood Neg (Negative) 09/17/17 17:02 Urine Nitrite Neg (Negative) 09/17/17 17:02 Urine Bilirubin Neg (Negative) 09/17/17 17:02 Urine Urobilinogen < 2.0 mg/dL (<2.0) 09/17/17 17:02 Ur Leukocyte Esterase Neg (Negative) 09/17/17 17:02 Urine WBC (Auto) 2.0 /HPF (0.0-6.0) 09/17/17 17:02 Urine RBC (Auto) 2.0 /HPF (0.0-6.0) 09/17/17 17:02 U Epithel Cells (Auto) 12.0 /HPF (0-13.0) 09/17/17 17:02 Urine Bacteria (Auto) 1+ /HPF (Negative) 09/17/17 17:02 Salicylates < 0.3 mg/dL (2.8-20.0) L 09/17/17 17:37 Urine Opiates Screen Presumptive negative 09/17/17 17:02 Urine Methadone Screen Presumptive negative 09/17/17 17:02 Acetaminophen < 15.0 ug/mL (10.0-30.0) 09/17/17 17:37 Ur Barbiturates Screen Presumptive negative 09/17/17 17:02 Ur Phencyclidine Scrn Presumptive negative 09/17/17 17:02 Ur Amphetamines Screen Presumptive negative 09/17/17 17:02 U Benzodiazepines Scrn Presumptive negative 09/17/17 17:02 Urine Cocaine Screen Presumptive negative 09/17/17 17:02 U Marijuana (THC) Screen Presumptive negative 09/17/17 17:02 Drugs of Abuse Note Disclamer 09/17/17 17:02 Plasma/Serum Alcohol < 0.01 gm% (0-0.07) 09/17/17 17:37
[2017-09-19] MEDS ORDERED: Fluarix Quad 2017-2018(36 MOS+ IM ONE (12:00)
[2017-09-19] MEDS ORDERED: PNEUMOVAX 23 IM ONE (12:00)
--- NOTE | 2017-09-19 17:47 | Discharge Summary ---
Providers - Providers Date of Admission: 09/17/17 19:56 Attending physician: JENNIFER MAGUIRE MD 09/17/17 20:04 Consult to Mental Health [CONS] Routine Reason For Exam: overdose Place consult to:: spring/supriya Notified:: supriya Phone number called:: [phone] Was contact made?: Yes If yes, spoke with:: rory Time called:: 11:04 Primary care physician: MARY VALDIVIA MD Hospitalization Condition: Serious Hospital course: The patient is a 57-year-old female presenting after intentional drug overdose. The patient was extremely depressed and withdrawn. She was seen by psychiatry who recommended inpatient psychiatric care. She was noted to be dehydrated, she was given IV fluids after which her kidney function was restored to normal. She was hypoglycemic due to anorexia, therefore she received dextrose infusion. She was counseled about tobacco cessation and given nicotine patches. When a bed became available and acute psychiatric facility she was subsequently transferred. Discharge diagnosis Suicide attempt Intentional drug overdose Major depression Acute kidney injury due to vasomotor nephropathy Type 2 diabetes Hypoglycemia due to anorexia Nicotine abuse Disposition: [id number]/TX-[id number] PSY HOSP/PSY UNIT Time spent for discharge: 33 minutes Core Measure Documentation - Palliative Care Palliative Care/ Comfort Measures: Not Applicable - Core Measures Any of the following diagnoses?: none Exam - Physical Exam Narrative exam: General.: Appears well, no distress, nontoxic HEENT: Moist mucous membranes, extraocular muscles intact, no lymphadenopathy Neck: supple Cardiac: S1-S2 heard Lungs: clear to auscultation bilaterally Abdomen: soft , nontender, nondistended, bowel sounds positive Extremities: no edema clubbing or cyanosis Skin: no rash or lesions Neurologic: no gross focal deficits Psych: Withdrawn, appears depressed - Constitutional Vitals: Temp Pulse Resp BP Pulse Ox 98.5 F 80 20 115/81 100 09/19/17 16:45 09/19/17 16:45 09/19/17 16:45 09/19/17 16:45 09/19/17 16:45 Plan Follow up with: MARY VALDIVIA MD [Primary Care Provider] - 7 Days Prescriptions: Mirtazapine [Remeron] 15 mg PO QHS #30 tablet Albuterol Sulfate [Albuterol 0.63% NEBS] 0.63 mg IH TID PRN #1 box PRN Reason: Wheezing Fluticasone [Flonase] 1 spray NS QDAY #1 bottle Nicotine [Habitrol] 21 mg TD QDAY #30 patch
[2017-09-19] MEDS: REMERON PO SCH (21:30)
[2017-09-20 06:17] LABS: Calcium 8.8 mg/dL (8.4-10.2)
[2017-09-20] MEDS: HABITROL TD SCH (10:47)
[2017-09-20] MEDS: FLONASE NS SCH (10:48)
[2017-09-20 11:56] VITALS: BP 119/87
== END 2017-09-20 15:34 | DRG 917 ==
LOC: ED 16:36 → 3A 19:56
PROVIDERS: ADMIT Internal Medicine; ATTEND Internal Medicine
PROC: 3E0234Z Introduction of Serum, Toxoid and Vaccine into Muscle, Percutaneous Approach (ICD-10-PCS; principal; 2017-09-19)
DX: T38.3X2A Poisoning by insulin and oral hypoglycemic [antidiabetic] drugs, intentional self-harm, initial encounter (principal); N17.0 Acute kidney failure with tubular necrosis; R45.851 Suicidal ideations; F32.2 Major depressive disorder, single episode, severe without psychotic features; T42.6X2A Poisoning by other antiepileptic and sedative-hypnotic drugs, intentional self-harm, initial encounter; E11.9 Type 2 diabetes mellitus without complications; E11.649 Type 2 diabetes mellitus with hypoglycemia without coma; F17.210 Nicotine dependence, cigarettes, uncomplicated; R63.0 Anorexia; I10 Essential (primary) hypertension; Z95.0 Presence of cardiac pacemaker; Z79.52 Long term (current) use of systemic steroids; Z68.36 Body mass index [BMI] 36.0-36.9, adult; Z71.6 Tobacco abuse counseling; Y92.89 Other specified places as the place of occurrence of the external cause; Z79.899 Other long term (current) drug therapy; Z23 Encounter for immunization
CPT/HCPCS: 36415; 80048; 80053; 80307; 80320; 81001; 82140; 82805; 82962; 83036; 85025; 90471; 90686; 90732; 93005; 93010; 99406; G0008; G0009; G0480; J7042